=== PATIENT | male | born 1965 | race Caucasian/White ===

== ENCOUNTER → 2022-11-05 | Day surgery (SDC) | payer OTHER ==
[2022-11-02 17:28] VITALS: BMI 29.0
[~2022-11-05] MED LIST: DEXAMETHASONE SOD PHOSPHATE 10 MG/1 ML VIAL ONE; DEXAMETHASONE SOD PHOSPHATE 4 MG/1 ML VIAL ONE; LIDOCAINE HCL/PF 1% SDV 5ML VIAL ONE
== END | disposition home or self-care (01) ==
LOC: JASU-SURG 04:24
PROVIDERS: ATTEND Pain Medicine Pain Medicine
DX: Z53.8 Procedure and treatment not carried out for other reasons (principal)
CPT/HCPCS: J1100

== ENCOUNTER 2022-11-09 04:33 | Day surgery (SDC) | payer OTHER ==
[2022-11-08 17:05] VITALS: BMI 29.0
[~2022-11-09 04:33] MED LIST changes: +DEXAMETHASONE SOD PHOSPHATE 10 MG/1 ML VIAL IM ONE; -DEXAMETHASONE SOD PHOSPHATE 10 MG/1 ML VIAL ONE; -DEXAMETHASONE SOD PHOSPHATE 4 MG/1 ML VIAL ONE; +IOHEXOL 180 MG/1 ML ML IJ ONE; +LIDOCAINE 1% P/F 10 MG/ML VIAL INF ONE; -LIDOCAINE HCL/PF 1% SDV 5ML VIAL ONE
[2022-11-09] MEDS ORDERED: LIDOCAINE HCL/PF 1% SDV 5ML VIAL ONE ×2 (07:37→14:07)
[2022-11-09] MEDS ORDERED: DEXAMETHASONE SOD PHOSPHATE 10 MG/1 ML VIAL ONE ×2 (07:37→14:08)
[2022-11-09] MEDS ORDERED: LIDOCAINE 1% P/F 10 MG/ML VIAL INF ONE (14:16)
[2022-11-09] MEDS ORDERED: IOHEXOL 180 MG/1 ML ML IJ ONE (14:22)
[2022-11-09] MEDS ORDERED: DEXAMETHASONE SOD PHOSPHATE 10 MG/1 ML VIAL IM ONE (14:22)
[2022-11-09 15:06] VITALS: BP 124/86; PULSE 89; RESP 18; TEMP 98.6
== END 2022-11-09 14:54 | disposition home or self-care (01) ==
LOC: JASU-SURG 04:33
PROVIDERS: ATTEND Pain Medicine Pain Medicine
PROC: 3E0R3BZ Introduction of Anesthetic Agent into Spinal Canal, Percutaneous Approach (ICD-10-PCS; 2022-11-09)
PROC: 3E0R33Z Introduction of Anti-inflammatory into Spinal Canal, Percutaneous Approach (ICD-10-PCS; principal; 2022-11-09 13:00)
DX: M54.16 Radiculopathy, lumbar region (principal)
CPT/HCPCS: 76000-TC-FY; J1100

== ENCOUNTER 2022-12-07 04:17 | Day surgery (SDC) | payer OTHER ==
[2022-12-02 15:54] VITALS: BMI 30.7
[2022-12-07] MEDS ORDERED: TRIAMCINOLONE ACET 40MG/1ML VIAL ONE (07:20)
[2022-12-07] MEDS ORDERED: BUPIVACAINE HCL/PF 0.5% (5MG/ML) 10 ML VIAL ONE (07:20)
[2022-12-07] MEDS ORDERED: LIDOCAINE HCL/PF 1% SDV 5ML VIAL ONE (07:21)
[2022-12-07 07:58] VITALS: RESP 16
[2022-12-07] MEDS ORDERED: IOHEXOL 180 MG/1 ML ML IJ ONE (09:30)
[2022-12-07] MEDS ORDERED: LIDOCAINE HCL 1% PRESERVATIVE FREE - 30ML VIAL IJ ONE (09:31)
[2022-12-07] MEDS ORDERED: BUPIVACAINE HCL/PF 0.5% (5MG/ML) 10 ML VIAL IJ ONE (09:31)
[2022-12-07] MEDS ORDERED: TRIAMCINOLONE ACET 40MG/1ML VIAL IM ONE (09:32)
[2022-12-07 10:16] VITALS: TEMP 98.4
[2022-12-07 10:18] VITALS: BP 120/80; PULSE 80
== END 2022-12-07 10:19 | disposition home or self-care (01) ==
LOC: JASU-SURG 04:17
PROVIDERS: ATTEND Pain Medicine Pain Medicine
PROC: 3E0U3BZ Introduction of Anesthetic Agent into Joints, Percutaneous Approach (ICD-10-PCS; 2022-12-07)
PROC: 3E0U33Z Introduction of Anti-inflammatory into Joints, Percutaneous Approach (ICD-10-PCS; principal; 2022-12-07 09:00)
DX: M53.3 Sacrococcygeal disorders, not elsewhere classified (principal)

== ENCOUNTER 2024-08-02 04:24 | Day surgery (SDC) | payer OTHER ==
[2024-08-02] MEDS ORDERED: ACETAMINOPHEN 500 MG TABLET (FP) PO PRN (08:42)
[2024-08-02 10:43] VITALS: RESP 18
[2024-08-02] MEDS ORDERED: DEXAMETHASONE SOD PHOSPHATE 10 MG/1 ML VIAL ONE (13:12)
[2024-08-02 14:23] VITALS: BP 135/88; PULSE 80; TEMP 97.5
== END 2024-08-02 14:00 | disposition home or self-care (01) ==
LOC: JASU-SURG 04:24
PROVIDERS: ATTEND Pain Medicine Pain Medicine
PROC: 3E0R3BZ Introduction of Anesthetic Agent into Spinal Canal, Percutaneous Approach (ICD-10-PCS; 2024-08-02)
PROC: 3E0R33Z Introduction of Anti-inflammatory into Spinal Canal, Percutaneous Approach (ICD-10-PCS; principal; 2024-08-02 13:17)
DX: M54.16 Radiculopathy, lumbar region (principal)
CPT/HCPCS: 76000-TC-FY; J1100

== ENCOUNTER 2024-09-06 04:27 | Day surgery (SDC) | payer OTHER ==
[2024-09-04 10:55] VITALS: BMI 28.4
[2024-09-06] MEDS ORDERED: ACETAMINOPHEN 500 MG TABLET (FP) PO PRN (09:20)
[2024-09-06 11:55] VITALS: RESP 18
[2024-09-06] MEDS ORDERED: DEXAMETHASONE SOD PHOSPHATE 10 MG/1 ML VIAL ONE (13:21)
[2024-09-06] MEDS ORDERED: LIDOCAINE HCL/PF 1% SDV 5ML VIAL ONE (13:21)
[2024-09-06] MEDS: LIDOCAINE HCL 1% PRESERVATIVE FREE - 30ML VIAL NR ONE (13:48)
[2024-09-06] MEDS: IOHEXOL 180 MG/1 ML ML IJ ONE (13:49)
[2024-09-06] MEDS: DEXAMETHASONE SOD PHOSPHATE 10 MG/1 ML VIAL IVPUSH ONE (13:49)
[2024-09-06 15:16] VITALS: TEMP 97.5
[2024-09-06 15:19] VITALS: BP 134/85; PULSE 88
== END 2024-09-06 15:00 | disposition home or self-care (01) ==
LOC: JASU-SURG 04:27
PROVIDERS: ATTEND Pain Medicine Pain Medicine
PROC: 3E0R3BZ Introduction of Anesthetic Agent into Spinal Canal, Percutaneous Approach (ICD-10-PCS; 2024-09-06)
PROC: 3E0R33Z Introduction of Anti-inflammatory into Spinal Canal, Percutaneous Approach (ICD-10-PCS; principal; 2024-09-06 14:00)
DX: M54.16 Radiculopathy, lumbar region (principal)
CPT/HCPCS: 76000-TC-FY; J1100